=== PATIENT | female | born 2000 | race Two or more races ===

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

== ENCOUNTER 2023-12-04 10:20 | Emergency (ER) | payer SELFPAY ==
[2023-12-04 10:37] VITALS: BP 128/76; PULSE 92; RESP 16; TEMP 36.6; O2SAT 96
[2023-12-04 11:06] LABS: Add Urine Microscopic? NO; Charge for UA Resulting for Rev
[2023-12-04 11:10] LABS: Bilirubin Urine Neg (Negative); Blood Urine Neg (Negative); Glucose Urine UA Norm (Normal); Ketones Urine Negative (Negative); Leukocyte Esterase Urine Negative (Negative); Nitrate Urine Negative (Negative); Protein Urine Neg (Negative); Specific Gravity, Urine 1.015 (1.005-1.030); Urine Appearance Clear (CLEAR); Urine Color Yellow (Yellow); Urobilinogen Urine Neg (Negative); pH Urine 5 (5-7)
[2023-12-04 11:24] LABS: Basophils # 0.1 10^3/uL (0.0-0.1); Basophils % 0.9 %; Eosinophils # 0.2 10^3/uL (0.0-0.8); Eosinophils % 3.9 %; Lymphocytes # 1.1 10^3/uL (0.8-4.8); Lymphocytes % 19.9 %; Mean Corpuscular Hemoglobin 23.3 pg (27-33); Mean Corpuscular Volume 77.6 fl (85-98); Mean Platelet Volume 9.7 fL (7.4-10.4); Monocytes # 0.5 10^3/uL (0.2-0.9); Monocytes % 8.4 %; Neutrophils # 3.58 10^3/uL (1.8-7.7); Neutrophils % 66.5 %; Nucleated Red Blood Cells % 0 %; Platelet Count 291 10^3/cmm (157-399); Red Blood Count 4.77 10^6/uL (3.85-5.65); Red Cell Distribution Width 18.2 % (12.1-15.1); White Blood Count 5.38 10^3/uL (3.29-11.43)
[2023-12-04 11:40] LABS: Alanine Aminotransferase 11 U/L (0-33); Albumin Level 4.1 g/dL (3.5-5.2); Alkaline Phosphatase 92 U/L (35-105); Anion Gap 17.6 (5-19); Aspartate Amino Transferase 14 U/L (0-32); Blood Urea Nitrogen 9 mg/dL (6-20); Carbon Dioxide 21 mmol/L (22-29); Chloride 105 mmol/L (98-107); Creatinine Clr Calc Pharmacy 171.4003; Globulin 3.1 g/dL (1.3-4.6); Glomerular Filtration Rate 105.6 mL/min (90-130); Glucose 96 mg/dL (65-115); Lipase 31 U/L (13-60); Osmolality Calculated 289 mOsm/kg (285-295); Potassium 3.6 mmol/L (3.5-5.1); Sodium 140 mmol/L (136-145); Total Bilirubin 0.4 mg/dL (0.15-1.2); Total Protein 7.2 g/dL (6.6-8.7)
[2023-12-04 11:42] LABS: HCG, Serum Qual Negative (Negative)
--- NOTE | 2023-12-04 12:42 | PC.PHAR ---
PT STATES HAS ALL 4 MEDICATIONS LAST FILL 04/22/2023-USES SPARINGLY DUE TO LACK OF INSURANCE.
--- NOTE | 2023-12-04 12:57 | ED_ITS ---
HPI - Abdominal Pain 2 General: Chief Complaint: Abdominal Pain Stated Complaint: abd, lower back, groin pain Time Seen by Provider: 12/04/23 12:30 Source: patient Mode of arrival: ambulatory History of Present Illness: 23-year-old female presents emergency co mplaining of severe right-sided flank pain with pain radiating down to the groin. She has had it for the last 3 days intermittent very sharp in nature. She also had urinary frequency and urgency. No hematuria. No fever sweats or chills. PFSH ED 2 PFSH: Medical History (Updated 12/04/23 @ 15:11 by Aurelio Soria DO) COPD (chronic obstructive pulmonary disease) Positive urine drug screen Surgical History Hx of knee surgery PT REPORTS KNEE SURGERY 2016 Family History Unknown No problems noted. Mother Diabetes Clotting disorder Hypertension Grandmother Cancer Maternal lung cancer Hypertension Maternal Father No problems noted. Sister Trisomy 13 Denies family history of Chronic kidney disease (CKD) Bleeding disorder Stroke Social History Smoking and tobacco/nicotine status: never used tobacco/nicotine Second hand smoke exposure: Yes Alcohol intake: never Substance/Drug Use: current Adopted: No Highest education level completed: 10th Grade Current occupational exposures/hazards: No Female Reproductive History: Para: 0 Spontaneous abortions: No Course 2 Vital Signs: Vital signs: Vital Signs Temperature 97.9 F 12/04/23 10:37 Pulse Rate 78 12/04/23 15:31 Respiratory Rate 16 12/04/23 15:31 Blood Pressure 116/77 12/04/23 15:31 Pulse Oximetry 95 12/04/23 15:31 Oxygen Delivery Me thod Room Air 12/04/23 14:58 MDM - Abdominal Pain Medical Decision Making Labs and imaging reviewed no acute findings will discharge patient home clear liquid diet advance as tolerated use promethazine as needed. If not improving recheck discussed her also this may be a biliary colic she has associated some of the pain with particular foods although it seems little low in the abdomen for that. If she has persistent symptoms may need further evaluation. CT today did not show any acute pathology Medical Records I reviewed the patient's medical records. Lab Data I reviewed the patient's lab results. 12/04/23 11:01 12/04/23 11:01 Labs/Radiology: Radiology Impressions Abdomen/Pelvis CT 12/04/23 12:58 IMPRESSION: 1. Limited noncontrast examination without CT evidence of acute intra-abdominal or pelvic pathology. 2. Additional findings, as above. Laboratory Results WBC 5.38 10^3/uL (3.29-11.43) 12/04/23 11:01 RBC 4.77 10^6/uL (3.85-5.65) 12/04/23 11:01 Hgb 11.10 g/dL (11.27-16.99) L 12/04/23 11:01 Hct 37.0 % (36-47) 12/04/23 11:01 MCV 77.6 fl (85-98) L 12/04/23 11:01 MCH 23.3 pg (27-33) L 12/04/23 11:01 MCHC 30.0 g/dL (30-55) 12/04/23 11:01 RDW 18.2 % (12.1-15.1) H 12/04/23 11:01 Plt Count 291 10^3/cmm (157-399) 12/04/23 11:01 MPV 9.7 fL (7.4-10.4) 12/04/23 11:01 Neut % (Auto) 66.5 % 12/04/23 11:01 Lymph % (Auto) 19.9 % 12/04/23 11:01 [place] % (Auto) 8.4 % 12/04/23 11:01 Eos % (Auto) 3.9 % 12/04/23 11:01 Baso % (Auto) 0.9 % 12/04/23 11:01 Neut # (Auto) 3.58 10^3/uL (1.8-7.7) 12/04/23 11:01 Lymph # (Auto) 1.1 10^3/uL (0.8-4.8) 12/04/23 11:01 [place] # (Auto) 0.5 10^3/uL (0.2-0.9) 12/04/23 11:01 Eos # (Auto) 0.2 10^3/uL (0.0-0.8) 12/04/23 11:01 Baso # (Auto) 0.1 10^3/uL (0.0-0.1) 12/04/23 11:01 Nucleated RBC % (auto) 0 % 12/04/23 11:01 Nucleated RBCs # 0.0 /100WBC 12/04/23 11:01 Sodium 140 mmol/L (136-145) 12/04/23 11:01 Potassium 3.6 mmol/L (3.5-5.1) 12/04/23 11:01 Chloride 105 mmol/L (98-107) 12/04/23 11:01 Carbon Dioxide 21 mmol/L (22-29) L 12/04/23 11:01 Anion Gap 17.6 (5-19) 12/04/23 11:01 BUN 9 mg/dL (6-20) 12/04/23 11:01 Creatinine 0.7 mg/dL (0.5-0.9) 12/04/23 11:01 GFR Calculation 105.6 mL/min (90-130) 12/04/23 11:01 Glucose 96 mg/dL (65-115) 12/04/23 11:01 POC Glucose 91 mg/dL (70-110) 12/04/23 14:37 Calculated Osmolality 289 mOsm/kg (285-295) 12/04/23 11:01 Calcium 9.0 mg/dL (8.5-10.5) 12/04/23 11:01 Total Bilirubin 0.4 mg/dL (0.15-1.2) 12/04/23 11:01 AST 14 U/L (0-32) 12/04/23 11:01 ALT 11 U/L (0-33) 12/04/23 11:01 Alkaline Phosphatase 92 U/L (35-105) 12/04/23 11:01 Total Protein 7.2 g/dL (6.6-8.7) 12/04/23 11:01 Albumin 4.1 g/dL (3.5-5.2) 12/04/23 11:01 Globulin 3.1 g/dL (1.3-4.6) 12/04/23 11:01 Lipase 31 U/L (13-60) 12/04/23 11:01 HCG, Qual Negative (Negative) 12/04/23 11:01 Urine Color Yellow (Yellow) 12/04/23 10:31 Urine Appearance Clear (CLEAR) 12/04/23 10:31 Urine pH 5 (5-7) 12/04/23 10:31 Ur Specific [place] 1.015 (1.005-1.030) 12/04/23 10:31 Urine Protein Neg (Negative) 12/04/23 10:31 Urine Glucose (UA) Norm (Normal) 12/04/23 10:31 Urine Ketones Negative (Negative) 12/04/23 10:31 Urine Blood Neg (Negative) 12/04/23 10:31 Urine Nitrate Negative (Negative) 12/04/23 10:31 Urine Bilirubin Neg (Negative) 12/04/23 10:31 Urine Urobilinogen Neg mg/dL (Negative) 12/04/23 10:31 Ur Leukocyte Esterase Negative (Negative) 12/04/23 10:31 All radiology interpretation(s) finalized by discharge Discharge Plan Discharge Patient Disposition: Home Clinical Impression: Abdominal pain Condition: Stable Prescriptions: New promethazine 25 mg tablet 25 mg PO Q6H PRN (Reason: nausea and vomiting) Qty: 20 0RF No Action Advair Diskus 250-50 mcg/dose blister with device 1 inh INHALATION BID sertraline 100 mg tablet 100 mg PO DAILY spironolactone 25 mg tablet 25 mg PO DAILY Ventolin HFA 90 mcg/actuation HFA aerosol inhaler 1 puff INHALATION Q4H PRN (Reason: Wheezing) Discharge Orders: Discharge ED (Routine); Ordered 12/04/23 Ordered By: Aurelio Soria Referrals: Rosy Larkin FNP [Primary Care Provider] - Discharge Diet: Clear Liquid Discharge Activity: Increase activity as tolerated Patient Instructions: Abdominal Pain (ED), Opioid Safety, Pain Management Activity Restrictions/Additional Instructions: Thank you for choosing [facility] for your healthcare needs today. It is very important that you follow up as instructed or that you return to the Emergency Department should you have concerns or if your condition changes or worsens in any way. You were seen today for abdominal pain. He did not have an elevation of your white count and your liver functions were normal as well as the kidney function and electrolytes. There is no sign of bladder infection. The CT that was done was unremarkable for any acute pathology. Recommend clear liquid diet for the next 24 to 48 hours and advance as tolerated use promethazine Tylenol or ibuprofen for nausea vomiting or discomfort. Follow-up with your primary care doctor if not improving Coding Level of Care Code ED Wildlife Biostation Research Ecologist for Kate Lacy
--- NOTE | 2023-12-04 12:58 | CTR_ITS ---
PROCEDURE INFORMATION: Exam: CT Abdomen And Pelvis Without Contrast Exam date and time: 12/04/2023 1:56 PM Age: 23 years old Clinical indication: Abdominal pain; Localized; Right lower quadrant (rlq); Prior surgery; Surgery date: 6+ months; Surgery type: x 2; Additional info: Flank pain TECHNIQUE: Imaging protocol: Computed tomography of the abdomen and pelvis without contrast. Axial, coronal and sagittal reformatted images were created and reviewed. Radiation optimization: All CT scans at this facility use at least one of these dose optimization techniques: automated exposure control; mA and/or kV adjustment per patient size (includes targeted exams where dose is matched to clinical indication); or iterative reconstruction. COMPARISON: US OB >= 14 weeks fetus [facility] 12/02/2020 9:35 AM RADIATION DOSE METRICS: Total DLP (mGy-cm): 1073.1 FINDINGS: Liver: Unremarkable. Gallbladder and bile ducts: No radiodense gallstones. No biliary ductal dilatation. Pancreas: Unremarkable. Spleen: Unremarkable. Adrenal glands: Normal. No mass. Kidneys and ureters: No mass. No radiodense calculi. No hydronephrosis. Stomach and bowel: No bowel wall thickening. No obstruction. No pneumatosis. Appendix: Normal. Intraperitoneal space: Trace nonspecific free pelvic fluid, likely physiologic. No organized fluid collection. No free air. Vasculature: Unremarkable. No aneurysm. Lymph nodes: Small mesenteric lymph nodes, nonspecific in appearance. No pathologically enlarged lymph nodes. Urinary bladder: Unremarkable as visualized. Reproductive: Unremarkable. Bones/joints: No acute osseous abnormality. Soft tissues: Unremarkable. CT/CT kidney stone [id number] IMPRESSION: 1. Limited noncontrast examination without CT evidence of acute intra-abdominal or pelvic pathology. 2. Additional findings, as above.
[2023-12-04 13:00] VITALS: BP 116/79; PULSE 68; PULSE 80; O2SAT 93; O2SAT 96
[2023-12-04 14:00] VITALS: BP 154/77; PULSE 79; O2SAT 99
[2023-12-04] MEDS: sodium chloride 0.9% 1,000 ML 999 ML IV (14:35)
[2023-12-04 14:40] LABS: Glucose Point of Care 91 mg/dL (70-110)
[2023-12-04 14:58] VITALS: PULSE 79; O2SAT 93
[2023-12-04 15:31] VITALS: BP 116/77; PULSE 78; RESP 16; O2SAT 95
== END 2023-12-04 15:31 | disposition home or self-care (01) ==
PROVIDERS: Emergency Medicine; Emergency Provider Family Medicine; PCP Nurse Practitioner Family
DX: R10.31 Right lower quadrant pain (principal); J44.9 Chronic obstructive pulmonary disease, unspecified; Z77.22 Contact with and (suspected) exposure to environmental tobacco smoke (acute) (chronic)
CPT/HCPCS: 36415; 36416; 74176; 80053; 81003; 82962; 83690; 84703; 85025; 99284; J7030

== ENCOUNTER 2023-12-23 20:36 | Inpatient (IN) | payer SELFPAY ==
[2023-12-23] VITALS (8 sets, daily range): BP systolic 123–147; BP diastolic 84–113; PULSE 106–123; RESP 16–22; TEMP 36.6; O2SAT 85–100
--- NOTE | 2023-12-23 20:39 | XRR_ITS ---
PROCEDURE INFORMATION: Exam: XR Chest Exam date and time: 12/23/2023 8:54 PM Age: 23 years old Clinical indication: Shortness of breath; Additional info: SOB TECHNIQUE: Imaging protocol: Radiologic exam of the chest. Views: 1 view. COMPARISON: CT angio chest PE protcl [id number] 08/22/2019 1:21 AM FINDINGS: Lungs: Mild left lower lung field opacities suggesting mild pneumonia. Pleural spaces: Unremarkable. No pleural effusion. No pneumothorax. Heart/Mediastinum: Interval appearance of mild elevation of the right hilum with mild right paratracheal opacities and right hilar opacities with possible atelectasis of the right middle lobe. CT chest with contrast may be helpful for complete evaluation. Bones/joints: Unremarkable. XR/XR chest 1V portable [id number] IMPRESSION: 1. Mild left lower lung field opacities suggesting mild pneumonia. 2. Interval appearance of mild elevation of the right hilum with mild right paratracheal opacities and right hilar opacities with possible atelectasis of the right middle lobe. CT chest with contrast may be helpful for complete evaluation.
--- NOTE | 2023-12-23 20:52 | ECG_ITS ---
[facility] Test Date: 2024-01-02 Pat Name: Renetta Morales Department: Room: EDIP Gender: Female Weapons Officer: : 2000 Requested By: Claritza Shannon Order Number: [id number] MD: Florian Driscoll M.D. Measurements Intervals [place] Rate: 108 P: 57 [place]: 126 QRS: 71 QRSD: 90 T: 62 QT: 316 QTc: 424 Interpretive Statements SINUS TACHYCARDIA WITH OCCASIONAL VENTRICULAR PREMATURE COMPLEXES Compared to ECG 08/22/2019 11:07:30 Ventricular premature complex(es) now present Sinus rhythm no longer present Electronically Signed On 12-24-2023 8:59:29 CDT by Florian Driscoll M.D. [id number]
--- NOTE | 2023-12-23 20:54 | ED_ITS ---
HPI - SOB/Dyspnea 2 General: Chief Complaint: Shortness of Breath/Dyspnea Stated Complaint: SOB Time Seen by Provider: 12/23/23 20:41 Source: patient Mode of arrival: ambulatory Limitations: no limitations History of Present Illness: HPI Narrative: 43-year-old female states been having sh ortness of breath all day states she feels like she cannot get a breath and she states she has been using albuterol inhaler with no relief she appears extremely anxious states she feels very anxious she is tachycardic tachypneic pulse ox here is 95% she denies any pain denies any cough or fever Associated symptoms: Deny abdominal pain, chest pain, fever(s), nausea or vomiting Review of Systems 2 Const: Denies: fever(s), chills, body aches or change in appetite ENMT: Denies: throat pain or dental pain Card: Denies: chest pain Resp: Reports: dyspnea GI: Denies: abdominal pain, nausea, vomiting or diarrhea Musc: Denies: neck pain or back pain Skin/Breast: Denies: rash Neuro: Denies: headache(s) Psych: Reports: anxiety PFSH ED 2 PFSH: Medical History COPD (chronic obstructive pulmonary disease) Positive urine drug screen Surgical History Hx of knee surgery PT REPORTS KNEE SURGERY 2017 Family History Unknown No problems noted. Mother Diabetes Clotting disorder Hypertension Grandmother Cancer Maternal lung cancer Hypertension Maternal Father No problems noted. Sister Trisomy 13 Denies family history of Chronic kidney disease (CKD) Bleeding disorder Stroke Social History Smoking and tobacco/nicotine status: never used tobacco/nicotine Second hand smoke exposure: Yes Alcohol intake: never Substance/Drug Use: current Adopted: No Highest education level completed: 10th Grade Current occupational exposures/hazards: No Female Reproductive History: Para: 0 Spontaneous abortions: No Physical Exam 2 Const: COMMON NORMALS: patient oriented x3 GENERAL APPEARANCE: anxious HENMT: COMMON NORMALS: normocephalic and atraumatic HEAD & SCALP: n ormocephalic and atraumatic Eye: COMMON NORMALS: conjunctivae normal CONJUNCTIVA: Yes conjunctivae normal Neck/C-Spine: COMMON NORMALS: full ROM and supple Chest: COMMONS NORMALS: normal inspection of the chest Resp: COMMON NORMALS: No retractions and No use of accessory muscles EFFORT & INSPECTION: Yes tachypneic and Yes respiratory distress AUSCULTATION: w heezes Cardio: COMMON NORMALS: regular rhythm and No murmurs present (Cardio) R ATE: tachycardic RHYTHM: regular rhythm Extremity: COMMON NORMALS: normal to inspection and full ROM Neuro: COMMON NORMALS: patient oriented x3, moves all extremities and no focal motor deficits Psych: COMMON NORMALS: mental status grossly normal, Normal thought process present and cooperative THOUGHT PROCESS: Normal thought process present Skin: COMMON NORMALS: no rashes or lesions noted and no wounds GENERAL SKIN EXAM: no rashes or lesions noted Course 2 Vital Signs: Vital signs: Vital Signs Temperature 97.9 F 12/23/23 20:43 Pulse Rate 115 H 12/23/23 22:07 Respiratory Rate 16 12/23/23 22:07 Blood Pressure 128/100 12/23/23 22:00 Pulse Oximetry 99 12/23/23 22:07 Oxygen Delivery Me thod Room Air 12/23/23 22:07 MDM - SOB/Dyspnea Medical Decision Making Patient presents here with shortness of breath x-ray does show pneumonia patient did improve with breathing treatments did have her ambulate with RT to monitor oxygen with exertion she dropped to 84% just walking down the burch. States she has been feeling severely short of breath when she walks will admit for IV antibiotics and continue breathing treatments Medical Records I reviewed the patient's medical records. Lab Data I reviewed the patient's lab results. 12/23/23 21:05 12/23/23 21:05 Labs/Radiology: Radiology Impressions Chest X-Ray 12/23/23 20:39 IMPRESSION: 1. Mild left lower lung field opacities suggesting mild pneumonia. 2. Interval appearance of mild elevation of the right hilum with mild right paratracheal opacities and right hilar opacities with possible atelectasis of the right middle lobe. CT chest with contrast may be helpful for complete evaluation. Laboratory Results WBC 3.64 10^3/uL (3.29-11.43) 12/23/23 21:05 RBC 4.98 10^6/uL (3.85-5.65) 12/23/23 21:05 Hgb 11.60 g/dL (11.27-16.99) 12/23/23 21:05 Hct 38.9 % (36-47) 12/23/23 21:05 MCV 78.1 fl (85-98) L 12/23/23 21:05 MCH 23.3 pg (27-33) L 12/23/23 21:05 MCHC 29.8 g/dL (30-55) L 12/23/23 21:05 RDW 18.3 % (12.1-15.1) H 12/23/23 21:05 Plt Count 243 10^3/cmm (157-399) 12/23/23 21:05 MPV 9.4 fL (7.4-10.4) 12/23/23 21:05 Neut % (Auto) 66.2 % 12/23/23 21:05 Lymph % (Auto) 14.8 % 12/23/23 21:05 Rush % (Auto) 11.5 % 12/23/23 21:05 Eos % (Auto) 5.8 % 12/23/23 21:05 Baso % (Auto) 1.4 % 12/23/23 21:05 Neut # (Auto) 2.41 10^3/uL (1.8-7.7) 12/23/23 21:05 Lymph # (Auto) 0.5 10^3/uL (0.8-4.8) L 12/23/23 21:05 Rush # (Auto) 0.4 10^3/uL (0.2-0.9) 12/23/23 21:05 Eos # (Auto) 0.2 10^3/uL (0.0-0.8) 12/23/23 21:05 Baso # (Auto) 0.1 10^3/uL (0.0-0.1) 12/23/23 21:05 Nucleated RBC % (auto) 0 % 12/23/23 21:05 Nucleated RBCs # 0.0 /100WBC 12/23/23 21:05 D-Dimer 0.36 ug/mLFEU (0-0.59) 12/23/23 21:05 Sodium 139 mmol/L (136-145) 12/23/23 21:05 Potassium 3.7 mmol/L (3.5-5.1) 12/23/23 21:05 Chloride 105 mmol/L (98-107) 12/23/23 21:05 Carbon Dioxide 22 mmol/L (22-29) 12/23/23 21:05 Anion Gap 15.7 (5-19) 12/23/23 21:05 BUN 15 mg/dL (6-20) 12/23/23 21:05 Creatinine 0.8 mg/dL (0.5-0.9) 12/23/23 21:05 GFR Calculation 90.5 mL/min (90-130) 12/23/23 21:05 Glucose 87 mg/dL (65-115) 12/23/23 21:05 Calculated Osmolality 288 mOsm/kg (285-295) 12/23/23 21:05 Calcium 9.2 mg/dL (8.5-10.5) 12/23/23 21:05 Total Bilirubin 0.2 mg/dL (0.15-1.2) 12/23/23 21:05 AST 15 U/L (0-32) 12/23/23 21:05 ALT 13 U/L (0-33) 12/23/23 21:05 Alkaline Phosphatase 100 U/L (35-105) 12/23/23 21:05 NT-Pro-B Natriuret Pep < 36 pg/mL (0-125) 12/23/23 21:05 Total Protein 7.9 g/dL (6.6-8.7) 12/23/23 21:05 Albumin 4.3 g/dL (3.5-5.2) 12/23/23 21:05 Globulin 3.6 g/dL (1.3-4.6) 12/23/23 21:05 HCG, Qual Negative (Negative) 12/23/23 21:05 All radiology interpretation(s) finalized by discharge EKG Data EKG 1: I personally reviewed and interpreted this EKG as follows: EKG Interpretation Date: 12/23/23 EKG interpretation time: 21:47 Interpretation: sinus tach hr [address] or t wave abnormalities qrs 90 qtc 379 Discharge Plan Discharge Patient Disposition: Admitted As Inpatient Clinical Impression: Asthma with exacerbation, Pneumonia, Acute respiratory failure with hypoxia Condition: Stable Prescriptions: No Action Advair Diskus 250-50 mcg/dose blister with device 1 inh INHALATION BID sertraline 100 mg tablet 100 mg PO DAILY spironolactone 25 mg tablet 25 mg PO DAILY Ventolin HFA 90 mcg/actuation HFA aerosol inhaler 1 puff INHALATION Q4H PRN (Reason: Wheezing) promethazine 25 mg tablet 25 mg PO Q6H PRN (Reason: nausea and vomiting) Qty: 20 0RF Referrals: Larkin,Rosy, RETAIL TIRE SALES MANAGER [Primary Care Provider] - Coding Level of Care Code ED City Distribution Clerk for Kate Lacy
--- NOTE | 2023-12-23 21:01 | PC.NURSE ---
Pt on bedside child monitor
[2023-12-23 21:17] LABS: Basophils # 0.1 10^3/uL (0.0-0.1); Basophils % 1.4 %; Eosinophils # 0.2 10^3/uL (0.0-0.8); Eosinophils % 5.8 %; Hematocrit 38.9 % (36-47); Lymphocytes # 0.5 10^3/uL (0.8-4.8); Lymphocytes % 14.8 %; Mean Corpuscular HGB Conc 29.8 g/dL (30-55); Mean Corpuscular Hemoglobin 23.3 pg (27-33); Mean Corpuscular Volume 78.1 fl (85-98); Mean Platelet Volume 9.4 fL (7.4-10.4); Monocytes # 0.4 10^3/uL (0.2-0.9); Monocytes % 11.5 %; Neutrophils # 2.41 10^3/uL (1.8-7.7); Neutrophils % 66.2 %; Nucleated Red Blood Cells % 0 %; Platelet Count 243 10^3/cmm (157-399); Red Blood Count 4.98 10^6/uL (3.85-5.65); Red Cell Distribution Width 18.3 % (12.1-15.1); White Blood Count 3.64 10^3/uL (3.29-11.43)
[2023-12-23] MEDS: LORazepam 2 mg/mL INJ 1 mL 1 MG IVP (21:19)
[2023-12-23] MEDS: methylPREDNISolone sod succ 125 mg/2 mL INJ IV (21:21)
[2023-12-23] MEDS: sodium chloride 0.9% 1,000 ML 999 ML IV (21:22)
[2023-12-23 21:28] LABS: HCG, Serum Qual Negative (Negative)
[2023-12-23 21:45] LABS: Alanine Aminotransferase 13 U/L (0-33); Albumin Level 4.3 g/dL (3.5-5.2); Alkaline Phosphatase 100 U/L (35-105); Anion Gap 15.7 (5-19); Aspartate Amino Transferase 15 U/L (0-32); Blood Urea Nitrogen 15 mg/dL (6-20); Calcium 9.2 mg/dL (8.5-10.5); Carbon Dioxide 22 mmol/L (22-29); Chloride 105 mmol/L (98-107); D Dimer 0.36 ug/mLFEU (0-0.59); Globulin 3.6 g/dL (1.3-4.6); Glomerular Filtration Rate 90.5 mL/min (90-130); Glucose 87 mg/dL (65-115); NT Pro B Type Natriuretic Pept < 36 pg/mL (0-125); Osmolality Calculated 288 mOsm/kg (285-295); Potassium 3.7 mmol/L (3.5-5.1); Sodium 139 mmol/L (136-145); Total Bilirubin 0.2 mg/dL (0.15-1.2); Total Protein 7.9 g/dL (6.6-8.7)
[2023-12-23] MEDS: ipratropium-albuterol 3 mL Neb INHALATION (21:59)
--- NOTE | 2023-12-23 22:32 | P.HP_ITS ---
Providers/Chief Complaint 2 Primary Care Provider: CADY Judge Chief Complaint: SOB History of Present Illness Renetta Morales is a 23 year old female with history of asthma, recently lost her insurance because she turned 23, only uses albuterol, has been experiencing shortness of breath for last few days which has gotten worse in the last 48 hours, she has noticed low-grade fever, she has been noticing wheezing, in the ER she was diagnosed with pneumonia, she was desaturating on exertion that necessitated her admission. I have requested blood gas, admit to ICU, start IV steroids, given antibiotics. Patient is stating that she is seeing a nurse practitioner who always prescribes her albuterol, she has not seen a coal crusher operator, she is stating that she is using her mom's inhalers. Stating that she is waking up every night around 4 AM because of cold induced worsening of asthma, forcing in the morning she grabs her albuterol and takes inhaler to make sure she does not get short of breath, she has been using albuterol 4-5 times a day I requested COVID PCR, strep throat and drug screen Review of Systems 2 Const: Reports: fever(s) and chills Eyes: Denies: change in vision ENMT: Denies: throat pain Card: Denies: chest pain Resp: Reports: dyspnea and wheezing GI: Denies: abdominal pain : Denies: flank pain Musc: Denies: neck pain Medications/Allergies Home Medications Medication Instructions Recorded Confirmed Last Taken Type albuterol sulfate 90 mcg/actuation 1 puff inhalation Q4H PRN Wheezing 12/04/23 12/04/23 Unknown History aerosol inhaler (Ventolin HFA) fluticasone 250 mcg-salmeterol 50 1 inh inhalation BID 12/04/23 12/04/23 Unknown History mcg/dose blistr powdr for inhalation (Advair Diskus) promethazine 25 mg tablet 25 mg PO Q6H PRN nausea and 12/04/23 Unknown Rx vomiting #20 tabs sertraline 100 mg tablet 100 mg PO DAILY 12/04/23 12/04/23 Unknown History spironolactone 25 mg tablet 25 mg PO DAILY 12/04/23 12/04/23 Unknown History Allergies Allergy/AdvReac Type Severity Reaction Status Date / Time No Known Allergies Allergy Verified 12/23/23 20:49 PFSH Acute 2 PFSH: Medical History COPD (chronic obstructive pulmonary disease) Positive urine drug screen Surgical History Hx of knee surgery PT REPORTS KNEE SURGERY 2017 Family History Unknown No problems noted. Mother Diabetes Clotting disorder Hypertension Grandmother Cancer Maternal lung cancer Hypertension Maternal Father No problems noted. Sister Trisomy 13 Denies family history of Chronic kidney disease (CKD) Bleeding disorder Stroke Social History Smoking and tobacco/nicotine status: never used tobacco/nicotine Second hand smoke exposure: Yes Alcohol intake: never Substance/Drug Use: current Adopted: No Highest education level completed: 10th Grade Current occupational exposures/hazards: No Female Reproductive History: Para: 0 Spontaneous abortions: No Vitals/I&O/Wt Last Vital Signs Temp 97.9 F 12/23/23 20:43 Pulse 115 H 12/23/23 22:07 Resp 16 12/23/23 22:07 BP 128/100 12/23/23 22:00 Pulse Ox 85 L 12/23/23 22:20 O2 Del Method Room Air 12/23/23 22:07 O2 Flow Rate 2 12/23/23 22:20 Weight last 48 hrs Weight 117.934 kg Physical Exam 2 Narrative: Morbid obese female GCS 15 Nonfocal neuroexam Pleasant cooperative Active wheezing Currently on room air Tachycardic Anxious appearing I examined her posterior pharyngeal wall I did not see any purulent tonsillitis Data 12/23/23 21:05 12/23/23 21:05 A&P Assessment and plan (1) Asthma with exacerbation: Qualifiers: Asthma persistence: unspecified Asthma severity: unspecified severity Qualified Code(s): J45.901 - Unspecified asthma with (acute) exacerbation (2) Hypoxia: (3) Pneumonia: (4) Acute respiratory failure with hypoxia: Plan Acute asthma exacerbation secondary to community-acquired pneumonia She needs stepup approach for treatment of asthma Albuterol at this point will not be enough to treat her underlying disease she is using albuterol 5 times a day and waking up almost every night around 4 AM because of exacerbation of asthma at nighttime I do not see significant eosinophils Atelectasis with mild elevation of right hilum secondary to atelectasis Started on IV steroids Continue levo albuterol along ipratropium Will use incentive spirometer for atelectasis Check D-dimer Requested drug screen I will continue ceftriaxone and azithromycin for pneumonia Patient desaturated on exertion down to 84% on ambulation requiring admission in the hospital Patient is tachycardic most likely from the taking multiple doses of albuterol Monitor closely for now Continue IV fluids Rule out Full code Regular diet DVT prophylaxis: SCDs I requested drug screen, COVID PCR, respiratory panel, strep throat, admit to ICU for active wheezing Requested ABG Patient needs help with insurance as well, Step up approach asthma exacerbations and frequent awakening at nighttime Patient will need at least medium dose inhaled steroids along with long-acting beta agonist She will also need pulmonary referral I will also add montelukast Attestations 2 Medical Necessity Statement*: Young female with significant wheezing secondary to asthma exacerbation, needing ICU monitoring anticipating more than 2 midnights Diagnoses Asthma with exacerbation J45.901 Asthma persistence: unspecified Asthma severity: unspecified severity Hypoxia R09.02 Pneumonia J18.9 Acute respiratory failure with hypoxia J96.01
[2023-12-23] MEDS: water for injection-sterile 10 ML (22:54)
[2023-12-23] MEDS: cefTRIAXone 1,000 mg SDV 1000 MG IVP (22:55)
[2023-12-23] MEDS: azithromycin 500 MG in sodium chloride 0.9% 250 ML 250 MG IV (23:09)
[2023-12-23 23:25] LABS: Procalcitonin 0.08 ng/mL (0-0.5)
[2023-12-23 23:28] LABS: ABG PCO2 27.5 mmHg (35-45); ABG PH Result 7.45 (7.35-7.45); Base Excess ABG -3.7 mmol/L (-2.0-2.0); Blood Gas Allen Test Pos; Blood Gas Operator Identificat CL; Blood Gas Sample Site Radial, right; Blood Gas Sample Type Arterial; HCO3 ABG 19.2 mmol/L (22-26); PO2 ABG 62.3 mmHg (80.0-100.0)
[2023-12-23 23:35] LABS: Amphetamines Screen Urine Negative (Negative); Barbiturates Screen Urine Negative (Negative); Benzodiazepines Screen Urine Positive (Negative); Cocaine Screen Urine Positive (Negative); Opiate Screen Urine Negative (Negative); PCP Screen Urine Negative (Negative); Rapid Strep A Test Negative (Negative); THC Screen Urine Positive (Negative)
[2023-12-24] VITALS (131 sets, daily range): BP systolic 103–147; BP diastolic 68–113; PULSE 77–133; RESP 11–31; TEMP 36.4–36.5; O2SAT 88–100; BMI 41.5
[2023-12-24 00:06] LABS: Estmated Average Glucose 108; Hemoglobin A1C 5.4 % (4.0-6.0)
[2023-12-24 01:42] LABS: Adenovirus Not Detected (NOT DETECT); Chlamydia Pneumoniae Not Detected (NOT DETECT); Coronavirus 229E,HKU1,NL63,OC4 Not Detected (NOT DETECT); Human Metapneumovirus Not Detected (NOT DETECT); Human Rhinovirus/Enterovirus Not Detected (NOT DETECT); Influenza A Not Detected (NOT DETECT); Influenza A H1 Not Detected (NOT DETECT); Influenza A H1-2009 Not Detected (NOT DETECT); Influenza A H3 Not Detected (NOT DETECT); Influenza B Not Detected (NOT DETECT); Mycoplasma Pneumoniae Not Detected (NOT DETECT); Parainfluenza Virus Type 1 Not Detected (NOT DETECT); Parainfluenza Virus Type 2 Not Detected (NOT DETECT); Parainfluenza Virus Type 3 Not Detected (NOT DETECT); Parainfluenza Virus Type 4 Not Detected (NOT DETECT); Respiratory Syncytial Virus A Not Detected (NOT DETECT); Respiratory Syncytial Virus B Not Detected (NOT DETECT)
[2023-12-24] MEDS: montelukast sodium 10 mg Tablet PO ×2 (02:11→17:09)
[2023-12-24] MEDS: sodium chloride 0.9% 1,000 ML 75 ML IV (02:12)
[2023-12-24 02:25] LABS: Thyroid Stimulating Hormone 2.06 uIU/mL (0.27-4.20)
[2023-12-24 02:30] LABS: SARS-COV-2 Detected (NOT DETECT)
[2023-12-24 03:47] LABS: Basophils % 0.2 %; Eosinophils % 0.2 %; Hematocrit 36.3 % (36-47); Lymphocytes # 0.3 10^3/uL (0.8-4.8); Lymphocytes % 6.5 %; Mean Corpuscular HGB Conc 30.3 g/dL (30-55); Mean Corpuscular Hemoglobin 23.5 pg (27-33); Mean Corpuscular Volume 77.4 fl (85-98); Mean Platelet Volume 9.5 fL (7.4-10.4); Monocytes # 0.1 10^3/uL (0.2-0.9); Monocytes % 1.2 %; Neutrophils # 3.79 10^3/uL (1.8-7.7); Neutrophils % 91.7 %; Nucleated Red Blood Cells % 0 %; Platelet Count 266 10^3/cmm (157-399); Red Blood Count 4.69 10^6/uL (3.85-5.65); Red Cell Distribution Width 18.2 % (12.1-15.1); White Blood Count 4.14 10^3/uL (3.29-11.43)
[2023-12-24 04:08] LABS: Anion Gap 16.8 (5-19); Blood Urea Nitrogen 13 mg/dL (6-20); C Reactive Protein 23.8 mg/L (0.0-4.9); Calcium 9.2 mg/dL (8.5-10.5); Carbon Dioxide 20 mmol/L (22-29); Chloride 107 mmol/L (98-107); Creatinine Clr Calc Pharmacy 170.8544; Glomerular Filtration Rate 105.6 mL/min (90-130); Glucose 138 mg/dL (65-115); Magnesium 1.8 mg/dL (1.7-2.3); Osmolality Calculated 292 mOsm/kg (285-295); Phosphorus 1.6 mg/dL (2.5-4.5); Potassium 3.8 mmol/L (3.5-5.1); Sodium 140 mmol/L (136-145)
[2023-12-24] MEDS: ipratropium 0.5 mg/2.5 mL Neb INHALATION ×4 (04:20→21:00)
[2023-12-24] MEDS: levalbuterol 1.25 mg/3 mL Neb INHALATION ×4 (04:20→21:00)
[2023-12-24] MEDS: methylPREDNISolone sod succ 40 mg/mL INJ IVP ×3 (04:44→21:09)
--- NOTE | 2023-12-24 08:59 | ECG_ITS ---
[facility] Test Date: 2023-12-24 Pat Name: Renetta Morales Department: Room: ICU02 Gender: Female Insurance Risk Analyst: : 2000 Requested By: Viraj Wong Order Number: [id number] MD: Nura Evans M.D. Measurements Intervals [place] Rate: 103 P: 53 ND: 138 QRS: 66 QRSD: 90 T: 58 QT: 332 QTc: 435 Interpretive Statements SINUS TACHYCARDIA ABNORMAL RHYTHM ECG Compared to ECG 08/22/2019 11:07:30 Sinus rhythm no longer present Electronically Signed On 12-24-2023 23:29:32 CDT by Nura Evans M.D. [email or web address] [email or web address] Icemccullough-hyde memorial [id number]
[2023-12-24] MEDS: lisinopril 10 mg Tablet PO (09:48)
[2023-12-24] MEDS: spironolactone 25 mg Tablet PO (09:48)
[2023-12-24] MEDS: azithromycin 250 mg Tablet 500 MG PO (09:48)
[2023-12-24] MEDS: ALPRAZolam 0.5 mg Tablet PO ×3 (09:48→22:50)
[2023-12-24] MEDS: cefTRIAXone 1,000 MG in sodium chloride 0.9% (plus) 50 ML 100 MG IV (09:49)
[2023-12-24] MEDS: remdesivir 200 MG in sodium chloride 0.9% (100 ml) 60 ML 100 MG IV (10:35)
[2023-12-24] MEDS: enoxaparin 40 mg/0.4 mL Syringe SUBCUT (12:16)
--- NOTE | 2023-12-24 12:38 | P.PN_ITS ---
Subjective 2 Subjective: Patient was seen this morning, we discussed her COVID-19 positivity, she tells me that she has had family members to visit her from [place] and from [place], does report a cough, her wheezing has improved, she denies being , Vitals/I&O/Wt Last Vital Signs Temp 97.6 F 12/24/23 01:02 Pulse 109 H 12/24/23 12:30 Resp 20 H 12/24/23 12:30 BP 120/69 12/24/23 12:30 Pulse Ox 90 12/24/23 12:25 O2 Del Method Nasal Cannula 12/24/23 11:29 O2 Flow Rate 1.5 12/24/23 11:29 FiO2 21 12/24/23 02:47 12/23/23 12/24/23 12/24/23 22:59 06:59 14:59 Intake Total 1560 / 1560 982.5 / 982.5 Output Total 500 / 500 1100 / 1100 Balance 1060 / 1060 -117.5 / -117.5 Weight last 48 hrs Weight 120.429 kg Weight 120.429 kg Weight 117.934 kg Physical Exam 2 Const: COMMON NORMALS: no acute distress and patient oriented x3 HENMT: COMMON NORMALS: normocephalic HEAD & SCALP: normocephalic Resp: COMMON NORMALS: normal respiratory effort, No retractions and No use of accessory muscles AUSCULTATION: wheezes Cardio: COMMON NORMALS: regular rate, regular rhythm, S1 normal heart sound present and S2 normal heart sound present RATE: regular rate RHYTHM: r egular rhythm HEART SOUNDS: S1 normal heart sound present and S2 normal heart sound present GI: COMMON NORMALS: Normal to inspection, nondistended, normoactive bowel sounds present and non-tender Extremity: COMMON NORMALS: no pedal edema Neuro: COMMON NORMALS: patient oriented x3 Psych: COMMON NORMALS: mental status grossly normal Data 12/24/23 03:06 12/24/23 03:06 Micro: Microbiology 12/23/23 10:40 Blood Culture - Preliminary Blood SPECIMEN COLLECTED 12/23/23 10:51 Blood Culture - Preliminary Blood SPECIMEN COLLECTED A&P Assessment and plan (1) Asthma with exacerbation: Qualifiers: Asthma persistence: unspecified Asthma severity: unspecified severity Qualified Code(s): J45.901 - Unspecified asthma with (acute) exacerbation (2) Hypoxia: (3) Pneumonia: (4) Acute respiratory failure with hypoxia: (5) Pneumonia due to COVID-19 virus: Plan Acute asthma exacerbation secondary to COVID-19 pneumonia, and bacterial pneumonia Plan ? He is more comfortable, will moved to [facility] ? Continue Solu-Medrol ? Continue Rocephin, ? Acute azithromycin -Continue albuterol ? Start remdesivir -Monitor respiratory status closely Patient is tachycardic most likely from the taking multiple doses of albuterol Monitor closely for now Continue IV fluids Urine toxicology screen positive for cocaine Full code Regular diet DVT prophylaxis: Lovenox Attestations 2 Medical Necessity Statement*: Patient requires hospitalization, inpatient, greater than 2 midnights, for asthma exacerbation secondary COVID-19 pneumonia, bacterial pneumonia Diagnoses Asthma with exacerbation J45.901 Asthma persistence: unspecified Asthma severity: unspecified severity Hypoxia R09.02 Pneumonia J18.9 Acute respiratory failure with hypoxia J96.01 Pneumonia due to COVID-19 virus U07.1; J12.82
[2023-12-24] MEDS: acetaminophen 500 mg Tablet PO (14:32)
[2023-12-25] VITALS (11 sets, daily range): BP systolic 95–129; BP diastolic 59–91; PULSE 68–105; RESP 17–22; TEMP 36.4–36.8; O2SAT 89–98
[2023-12-25 05:16] LABS: Basophils % 0.1 %; Hematocrit 39.3 % (36-47); Lymphocytes # 0.8 10^3/uL (0.8-4.8); Lymphocytes % 5.8 %; Mean Corpuscular HGB Conc 29.5 g/dL (30-55); Mean Corpuscular Hemoglobin 23.1 pg (27-33); Mean Corpuscular Volume 78.3 fl (85-98); Mean Platelet Volume 9.6 fL (7.4-10.4); Monocytes # 0.4 10^3/uL (0.2-0.9); Monocytes % 2.9 %; Neutrophils # 12.37 10^3/uL (1.8-7.7); Neutrophils % 90.9 %; Nucleated Red Blood Cells % 0 %; Platelet Count 353 10^3/cmm (157-399); Red Blood Count 5.02 10^6/uL (3.85-5.65); Red Cell Distribution Width 18.6 % (12.1-15.1); White Blood Count 13.61 10^3/uL (3.29-11.43)
[2023-12-25] MEDS: methylPREDNISolone sod succ 40 mg/mL INJ IVP ×2 (05:33→15:08)
[2023-12-25 05:46] LABS: Anion Gap 17.3 (5-19); Blood Urea Nitrogen 13 mg/dL (6-20); Calcium 9.3 mg/dL (8.5-10.5); Carbon Dioxide 22 mmol/L (22-29); Chloride 105 mmol/L (98-107); Creatinine Clr Calc Pharmacy 149.4976; Glomerular Filtration Rate 90.5 mL/min (90-130); Glucose 133 mg/dL (65-115); Osmolality Calculated 292 mOsm/kg (285-295); Potassium 4.3 mmol/L (3.5-5.1); Sodium 140 mmol/L (136-145)
[2023-12-25] MEDS: levalbuterol 1.25 mg/3 mL Neb INHALATION ×3 (07:43→20:01)
[2023-12-25] MEDS: ipratropium 0.5 mg/2.5 mL Neb INHALATION ×2 (07:43→20:01)
[2023-12-25] MEDS: sertraline 100 mg Tablet PO (09:08)
[2023-12-25] MEDS: ALPRAZolam 0.5 mg Tablet PO ×2 (09:08→19:40)
[2023-12-25] MEDS: azithromycin 250 mg Tablet PO (09:09)
[2023-12-25] MEDS: remdesivir 100 MG in sodium chloride 0.9% (100 ml) 80 ML IV (09:09)
[2023-12-25] MEDS: cefTRIAXone 1,000 MG in sodium chloride 0.9% (plus) 50 ML 100 MG IV (09:09)
[2023-12-25] MEDS: enoxaparin 40 mg/0.4 mL Syringe SUBCUT (15:08)
--- NOTE | 2023-12-25 17:07 | P.PN_ITS ---
Subjective 2 Subjective: patient was seen this morning, reports a cough, no fever, no chills, Vitals/I&O/Wt Last Vital Signs Temp 97.9 F 12/25/23 16:17 Pulse 86 12/25/23 17:03 Resp 18 12/25/23 17:03 BP 129/91 12/25/23 16:17 Pulse Ox 95 12/25/23 17:03 O2 Del Method Room Air 12/25/23 17:03 O2 Flow Rate 1 12/24/23 17:05 FiO2 21 12/24/23 02:47 12/25/23 12/25/23 12/25/23 06:59 14:59 22:59 Intake Total 1010 / 1010 100 / 1110 Balance 1010 / 1010 100 / 1110 Weight last 48 hrs Weight 120.429 kg Weight 120.429 kg Weight 120.429 kg Weight 117.934 kg Physical Exam 2 Const: COMMON NORMALS: no acute distress and patient oriented x3 Resp: COMMON NORMALS: normal respiratory effort, No retractions and No use of accessory muscles AUSCULTATION: wheezes Cardio: COMMON NORMALS: regular rate, regular rhythm, S1 normal heart sound present and S2 normal heart sound present RATE: regular rate RHYTHM: r egular rhythm HEART SOUNDS: S1 normal heart sound present and S2 normal heart sound present GI: COMMON NORMALS: Normal to inspection, nondistended, normoactive bowel sounds present and non-tender Extremity: COMMON NORMALS: no pedal edema Neuro: COMMON NORMALS: patient oriented x3 Psych: COMMON NORMALS: mental status grossly normal Data 12/25/23 04:36 12/25/23 04:36 Micro: Microbiology 12/23/23 23:14 Group A Streptococcus Rapid Screen - Preliminary Throat 12/23/23 10:40 Blood Culture - Preliminary Blood NEGATIVE TO DATE 12/23/23 10:51 Blood Culture - Preliminary Blood NEGATIVE TO DATE A&P Assessment and plan (1) Asthma with exacerbation: Qualifiers: Asthma persistence: unspecified Asthma severity: unspecified severity Qualified Code(s): J45.901 - Unspecified asthma with (acute) exacerbation (2) Hypoxia: (3) Pneumonia: (4) Acute respiratory failure with hypoxia: (5) Pneumonia due to COVID-19 virus: Plan Acute asthma exacerbation secondary to COVID-19 pneumonia, and bacterial pneumonia Plan ? He is more comfortable, will moved to [facility] ? Continue Solu-Medrol ? Continue Rocephin, ? Acute azithromycin -Continue albuterol ? Start remdesivir -Monitor respiratory status closely Patient is tachycardic most likely from the taking multiple doses of albuterol Monitor closely for now Continue IV fluids Urine toxicology screen positive for cocaine Full code Regular diet DVT prophylaxis: Lovenox curently on 2L Attestations 2 Medical Necessity Statement*: patient requires hospitalization for pna, covid pna, asthma Diagnoses Asthma with exacerbation J45.901 Asthma persistence: unspecified Asthma severity: unspecified severity Hypoxia R09.02 Pneumonia J18.9 Acute respiratory failure with hypoxia J96.01 Pneumonia due to COVID-19 virus U07.1; J12.82
[2023-12-25] MEDS: montelukast sodium 10 mg Tablet PO (17:13)
--- NOTE | 2023-12-25 21:20 | PC.NURSE ---
Pt was ambulating in the burch with her and child, only the patient was wearing a mask. The pt had been staying with her while she was admitted on the floor. Charge nurse -Ira Stephens RN educated them on not ambulating in the burch when she is on isolation due to infection control concerns. Pt became upset saying that she had been told by multiple that it was ok to be outside of the room. Creative Services Director came to speak with the patient and again advised her of the policies and pt said she would like to leave AMA. Pt is A&OX4. explained the risks of leaving against medical advise. AMA paperwork signed and Creative Services Director walked them out. Physician notified.
== END 2023-12-25 21:26 | disposition left against medical advice (07) | DRG 177 ==
LOC: ER 22:16 → ER IP 22:43 → ICU 12-24 01:02 → MEDSURG 12-24 18:52
PROVIDERS: Admitting Provider Internal Medicine; Emergency Provider Emergency Medicine; PCP Nurse Practitioner Family; Visit Provider Family Medicine
DX: U07.1 COVID-19 (principal); J12.82 Pneumonia due to coronavirus disease 2019; J15.9 Unspecified bacterial pneumonia; J96.01 Acute respiratory failure with hypoxia; J45.901 Unspecified asthma with (acute) exacerbation; J44.0 Chronic obstructive pulmonary disease with (acute) lower respiratory infection; R00.0 Tachycardia, unspecified; R82.5 Elevated urine levels of drugs, medicaments and biological substances; F41.9 Anxiety disorder, unspecified
CPT/HCPCS: 36415; 36600; 71045; 80048; 80053; 80306; 82803; 83036; 83735; 83880; 84100; 84145; 84443; 84703; 85025; 85378; 86140; 87040; 87081; 87486; 87581; 87633; 87880; 93005; 94640; 94664; 96365; 96372; 96374; 96375; 96376; 99285; J0248; J0456; J0696; J1650; J2060; J2919; J7030; J7050; J7614; J7644; Q0144

== ENCOUNTER 2024-12-17 00:26 | Emergency (ER) | payer BC, MEDICAID, SELFPAY ==
[2024-12-17 00:31] VITALS: BP 155/84; PULSE 85; RESP 16; TEMP 36.4; O2SAT 95; BMI 38.8
--- OUTSIDE RECORDS SUMMARY | 2024-12-17 00:37 | XMS_ITS | Clinical Summary ---
Author Organization [facility] Address [address] [place] [address] Care Team Providers Care Surgical Aides Teacher Name Role Phone Trae, Rosy CADY Primary Care Provider [phone] Allergies No known active allergies Medications ipratropium-albu teroL (DUONEB) 0.5 mg-3 mg(2.5 mg base)/3 mL Solution for Nebulization Take 3 mL by inhalation every 6 hours as needed for Shortness of Breath. Active albuterol sulfate 90 mcg/Actuation inhaler Take 2 Puffs by inhalation every 6 hours as needed for Wheezing or Shortness of Breath. 8.5 Gram 01/23/20 22 Active albuterol (PROVENTIL,VICKY LIANE) 2.5 mg /3 mL (0.083 %) Solution for Nebulization Take 3 mL (2.5 mg) by inhalation every 4 hours as needed for Shortness of Breath. 60 Each 01/23/20 22 Active SUMAtriptan (IMITREX) 100 mg tablet Take 1 Tablet (100 mg) by mouth see administration instructions. may repeat in 2 hours; max dose 200mg in 24 hours 10 Tablet 03/04/20 22 Active albuterol sulfate HFA 90 mcg/actuation aerosol inhaler Take 4 Puffs by inhalation every 4 hours as needed for Shortness of Breath or Wheezing. 8.5 Gram 07/17/19 23 Active Active Problems Problem Noted Date Diagnosed Date Sinus arrhythmia 08/15/2021 Mild intermittent asthma with acute exacerbation 08/13/2021 H/O scarlet fever 08/13/2021 Moderate persistent asthma with exacerbation Acute respiratory failure with hypoxia 2 C. difficile diarrhea 08/26/2019 Morbid obesity with body mass index of 40.0-49.9 08/22/2019 S/P section 08/22/2019 Respiratory distress following surgery 0 Anemia affecting in third trimester fever 08/22/2019 Hypoxia 08/22/2019 Hypertension in , p re-eclampsia, severe, delivered/ 08/22/2019 Gestational diabetes mellitus, class A1 08/22/19 20 Pneumonia due to infectious organism 08/22/2019 Reactive airway disease 11/23/2010 Comedone 02/08/2010 Severe pre-eclampsia, antepartum Encounters Date Type Department Care Team Description 12/15/2024 External Device Data STL ABSTRACTION Provider, Abstract 11/17/2024 External Device Data STL ABSTRACTION Provider, Abstract 11/17/2024 External Device Data STL ABSTRACTION Provider, Abstract 11/17/2024 External Device Data STL ABSTRACTION Provider, Abstract from Last 3 Months Immunizations Immunization Administration Dates Next Due (M-M-R II/PRIORIX)(12 MO UP) MEASLES, MUMPS AND RUBELLA VIRUS VACCINE, 0.5 ML IM/SUBCUT 03/10/2008,09/09/2003 (VARIVAX)(12 MOS UP)VARICELL A VIRUS VACCINE (PF) 0.5 ML, SUB CUT 12/09/2003 Dt Dtp Dtap Vaccine 03/10/2008, 4,03/11/2003,2002,2002 HIB, Unspecified Formulation 12/09/2003, 03/11/2003,2002,2002 Hepatitis B Vaccine 03/11/2003,2002,2002 IPV/OPV 03/10/2008, 3,2002,2002 Influenza Vaccine Split 3+ Yrs IM 03/17/2010 Family History * Patient is adopted Medical History Relation Name Comments Healthy Father Respiratory Disease Maternal Grandfather Breast Cancer Maternal Grandmother Respiratory Disease Maternal Grandmother Diabetes Mother Other Mother narcolepsy Respiratory Disease Mother Thyroid Disease Mother Colon Cancer Neg Hx Relation Name Status Comments Father Alive Maternal Grandfather Alive Maternal Grandmother Alive Mother Alive Paternal Grandfather Paternal Grandmother Social History Tobacco Use Types Packs/Day Years Used Date Smoking Tobacco: Former Smokeless Tobacco: Never Tobacco Cessation:Counseling Given: Not Answered Alcohol Use Standard Drinks/Week Comments Not Currently 0 (1 standard drink = 0.6 oz pur e alcohol) Comments No Sex and Gender Information Value Date Recorded Sex Assigned at Not on file Legal Sex Female 10:38 AM STONE SANDBLASTER Gender Identity Not on file Sexual Orientation Not on file Last Filed Vital Signs Vital Sign Reading Time Taken Comments Blood Pressure 124/88 07/17/2022 10:32 PM STONE SANDBLASTER Pulse 97 07/17/2022 11:00 PM STONE SANDBLASTER Temperature 36.5 C (97.7 F) 07/17/2022 10:32 PM STONE SANDBLASTER Respiratory Rate 20 07/17/2022 11:0 0 PM STONE SANDBLASTER Oxygen Saturation 98% 07/17/2022 10: 57 PM STONE SANDBLASTER Inhaled Oxygen Concentration - - Weight 120.4 kg (265 lb 6.4 oz) 023 10:32 PM STONE SANDBLASTER Height 170.2 cm (5' 7 ) 07/17/2022 10:3 2 PM STONE SANDBLASTER Body Mass Index 41.57 07/17/2022 10:32 PM STONE SANDBLASTER Plan of Treatment Health Maintenance Due Date Last Done Comments CHLAMYDIA SCREENING (ANNUAL) 11-24 YEARS 2013 DTAP/TDAP/TD VACCINES (6 - Tdap) 2013 03/10/2008, 12/09/2003, 03/11/2003, Additional history exists HPV VACCINES (1 - 3-dose series) 2017 CERVICAL CANCER SCREENING 08/26/2023 HPV/Cotest (21-29) 08/26/2023 PAP SMEAR 08/26/2023 INFLUENZA VACCINE (#1) 2025 03/17/2010 HEPATITIS B VACCINES Completed 03/11/2003, 2002, 2002 Insurance * Guarantor: LILLIE MORALES Account Type Relation to Patient Date of Phone Billing Address Personal/Family [address] [facility] [place] [address] RX INFOCROSS[place] Medicaid Advance Directives For more information, please contact: [phone] * Full Code (Latest Code Status on File) Date Activated Date Inactivated Comments 08/13/2021 2:36 PM 08/16/2021 10:49 PM * Full Code Date Activated Date Inactivated Comments 08/12/2021 3:41 PM 08/13/2021 1:04 PM Care Teams Surgical Aides Teacher Relationship Specialty Start Date End Date Rosy Larkin FNP [address] [place] [phone] PCP - General Nurse Practitioner Family 08/02/21
--- OUTSIDE RECORDS SUMMARY | 2024-12-17 00:37 | XMS_ITS | Encounter Summary ---
Author Organization [facility] Address [address] [place] [address] Care Team Providers Care Senior Power Plant Operator Name Role Phone Rosy Larkin CADY Primary Care Provider [phone] Encounter Details Date Type Department Care Team (Late st Contact Info) Description 12/15/2024 External Device Data ST[facility] ABSTRACTION Provider, Abstract NO ADDRESS ON FILE Social History Tobacco Use Types Packs/Day Years Used Date Smoking Tobacco: Former Smokeless Tobacco: Never Alcohol Use Standard Drinks/Week Comments Not Currently 0 (1 standard drink = 0.6 oz pur e alcohol) Comments No Sex and Gender Information Value Date Recorded Sex Assigned at Not on file Legal Sex Female 10:38 AM FORENSIC BALLISTICS EXPERT Gender Identity Not on file Sexual Orientation Not on file documented as of this encounter Plan of Treatment Not on file documented as of this encounter Visit Diagnoses Not on filedocumented in this encounter Care Teams Senior Power Plant Operator Relationship Specialty Start Date End Date Rosy Larkin CADY [address] [place] [address] PCP - General Nurse Practitioner Family 08/02/21 documented as of this encounter
[2024-12-17 01:30] VITALS: RESP 18
[2024-12-17] MEDS: morphine 4 mg/mL SDV 1 mL 8 MG IM (01:30)
[2024-12-17 02:13] VITALS: BP 155/84; PULSE 78; O2SAT 91
--- NOTE | 2024-12-17 03:03 | W.ED.DENTAL ---
HPI - Dental/Oral General: Chief complaint: Dental/Oral Stated complaint: Tooth Ache Time Seen by Provider: 12/17/24 00:57 History of Present Illness: Patient presents with severe upper tooth pain, rating it as 10/10 on the pain scale. The pain has been present for a long time, initially becoming bad about two years ago, leading the patient to stop eating on that side. Recently, the patient started eating on the affected side again due to developing patches on the other side. The patient was able to eat today. No prior antibiotics have been taken for this issue. The patient has not seen a dentist since their child was a , approximately three years ago. The patient reports that the pain is now severe and involves the whole head. On examination, the gums around the affected tooth appear dark red, and there is a fracture of the tooth behind a silver crown. Related Data Home Medications ?Medication ?Instructions ?Recorded ?Confirmed albuterol sulfate 90 mcg/actuation 1 puff inhalation Q4H PRN Wheezing 12/04/23 12/24/23 aerosol inhaler (Ventolin HFA) sertraline 100 mg tablet 100 mg PO DAILY 12/04/23 12/24/23 spironolactone 25 mg tablet 25 mg PO DAILY 12/04/23 12/24/23 Previous Rx's ?Medication ?Instructions ?Recorded clindamycin HCl 150 mg capsule 450 mg (3 x 150 mg) PO Q8H 14 days 12/17/24 (Cleocin HCl) #126 caps oxycodone-acetaminophen 5 mg-325 1 tab PO Q8H PRN pain #20 tabs 12/17/24 mg tablet (Percocet) Allergies Allergy/AdvReac Type Severity Reaction Status Date / Time No Known Allergies Allergy Verified 12/17/24 00:39 [facility] ED PFSH: Medical History COPD (chronic obstructive pulmonary disease) Positive urine drug screen Surgical History Hx of knee surgery PT REPORTS KNEE SURGERY 2017 Family History Unknown No problems noted. Mother Diabetes Clotting disorder Hypertension Grandmother Cancer Maternal lung cancer Hypertension Maternal Father No problems noted. Sister Trisomy 13 Denies family history of Chronic kidney disease (CKD) Bleeding disorder Stroke Social History Smoking and tobacco/nicotine status: never used tobacco/nicotine Second hand smoke exposure: Yes Alcohol intake: never Substance/Drug Use: current Adopted: No Highest education level completed: 10th Grade Current occupational exposures/hazards: No Female Reproductive History: Date of last menstrual period: 12/04/24 Para: 0 Spontaneous abortions: No Physical Exam Const: COMMON NORMALS: patient oriented x3 and alert HENMT: COMMON NORMALS: normocephalic and atraumatic HEAD & SCALP: normocephalic and atraumatic OTHER: Multiple caries throughout the mouth. Mild irritation of the gums surrounding tooth 17. Eye: COMMON NORMALS: Equal, round and reactive pupils present, EOMs intact bilaterally and no scleral icterus PUPIL: Yes Equal, round and reactive pupils present Resp: COMMON NORMALS: normal respiratory effort and No retractions Cardio: COMMON NORMALS: regular rate, regular rhythm and No murmurs present (Cardio) RATE: regular rate RHYTHM: regular rhythm GI: COMMON NORMALS: Normal to inspection, nondistended, normoactive bowel sounds present, Soft to palpation and non-tender PALPATION: Yes Soft to palpation Neuro: COMMON NORMALS: patient oriented x3 SENSORIUM/ORIENTATION: Yes alert Skin: COMMON NORMALS: no rashes or lesions noted GENERAL SKIN EXAM: no rashes or lesions noted Course Vital Signs: Vital signs: Vital Signs Temperature 97.6 F 12/17/24 00:31 Pulse Rate 78 12/17/24 02:13 Respiratory Rate 18 12/17/24 01:30 Blood Pressure 155/84 12/17/24 02:13 Pulse Oximetry 91 12/17/24 02:13 Oxygen Delivery Me thod Room Air 12/17/24 00:31 MDM - Dental/Oral Medical Decision Making In summary, patient appears to have dental pain. She has had this pain off and on for a long time but got acutely worse today. She has not had antibiotics for it. She agrees to be seen by dentist soon as possible. I will give her a course of clindamycin and a short course of pain medication to be taken alongside ibuprofen. She shows good understanding and agrees to the plan and feels much better at this time. No radiology studies performed this visit Discharge Plan Discharge Patient Disposition: Home Clinical Impression: Dental infection Condition: Stable Prescriptions: New clindamycin HCl [Cleocin HCl] 150 mg capsule 450 mg PO Q8H 14 Days Qty: 126 0RF oxycodone-acetaminophen [Percocet] 5-325 mg tablet 1 tab PO Q8H PRN (Reason: pain) Qty: 20 0RF No Action sertraline 100 mg tablet 100 mg PO DAILY spironolactone 25 mg tablet 25 mg PO DAILY Patient Comments: states out of medications albuterol sulfate [Ventolin HFA] 90 mcg/actuation HFA aerosol inhaler 1 puff INHALATION Q4H PRN (Reason: Wheezing) Discharge Orders: Discharge ED (Routine); Ordered 12/17/24 Ordered By: Kapil Thornton Referrals: Rosy Larkin FNP [Primary Care Provider, Nurse Practitioner] Discharge Diet: Advance as tolerated Discharge Activity: Increase activity as tolerated Patient Instructions: Toothache (ED), Opioid Safety, Pain Management, Patient Portal & Kellie Instructions Activity Restrictions/Additional Instructions: please see a dentist as soon as possible Print Language: French Coding Level of Care Code ED Demurrage Worker for Kate Lacy
== END 2024-12-17 02:15 | disposition home or self-care (01) ==
PROVIDERS: Emergency Provider Student in an Organized Health Care Education/Training Program; PCP Nurse Practitioner Family
DX: K04.7 Periapical abscess without sinus (principal); J44.9 Chronic obstructive pulmonary disease, unspecified
CPT/HCPCS: 96372; 99284; J1885; J2270; J9999

== ENCOUNTER 2024-12-19 23:42 | Emergency (ER) | payer BC, MEDICAID, SELFPAY ==
--- OUTSIDE RECORDS SUMMARY | 2024-12-19 23:47 | XMS_ITS | Clinical Summary ---
Author Organization [facility] Address [address] [place] [address] Care Team Providers Care Sports Complex Attendant Name Role Phone Trae, Rosy CADY Primary Care Provider [phone] Allergies No known active allergies Medications ipratropium-albu [...] on file Legal Sex Female 10:38 AM CRIMINOLOGY PROFESSOR Gender Identity Not on file Sexual Orientation Not on file Last Filed Vital Signs Vital Sign Reading Time Taken Comments Blood Pressure 124/88 07/17/2022 10:32 PM CRIMINOLOGY PROFESSOR Pulse 97 07/17/2022 11:00 PM CRIMINOLOGY PROFESSOR Temperature 36.5 C (97.7 F) 07/17/2022 10:32 PM CRIMINOLOGY PROFESSOR Respiratory Rate 20 07/17/2022 11:0 0 PM CRIMINOLOGY PROFESSOR Oxygen Saturation 98% 07/17/2022 10: 57 PM CRIMINOLOGY PROFESSOR Inhaled Oxygen Concentration - - Weight 120.4 kg (265 lb 6.4 oz) 023 10:32 PM CRIMINOLOGY PROFESSOR Height 170.2 cm (5' 7 ) 07/17/2022 10:3 2 PM CRIMINOLOGY PROFESSOR Body Mass Index 41.57 07/17/2022 10:32 PM CRIMINOLOGY PROFESSOR Plan of Treatment Health Maintenance Due Date [...] Patient Date of Phone Billing Address Personal/Family [address] [facility] [place] [address] RX INFOCROSS[place] Medicaid Advance Directives For more information, please contact: [phone] * Full Code (Latest Code Status on File) Date Activated Date Inactivated Comments 08/13/2021 2:36 PM 08/16/2021 10:49 PM * Full Code Date Activated Date Inactivated Comments 08/12/2021 3:41 PM 08/13/2021 1:04 PM Care Teams Sports Complex Attendant Relationship Specialty Start Date End Date Rosy Larkin FNP [address] [place] [phone] PCP - General Nurse Practitioner Family 08/02/21
--- OUTSIDE RECORDS SUMMARY | 2024-12-19 23:47 | XMS_ITS | Encounter Summary ---
Author Organization [facility] Address [address] [place] [address] Care Team Providers Care Desk Sergeant Name Role Phone Rosy Larkin CADY Primary Care Provider [phone] Encounter Details Date Type Department Care Team [...] on file Legal Sex Female 10:38 AM GIS SCIENTIST Gender Identity Not on file Sexual Orientation Not on file documented as of this encounter Plan of Treatment Not on file documented as of this encounter Visit Diagnoses Not on filedocumented in this encounter Care Teams Desk Sergeant Relationship Specialty Start Date End Date Rosy Larkin CADY [address] [place] [address] PCP - General Nurse Practitioner Family 08/02/21 documented as of this encounter
[2024-12-20 00:01] VITALS: BP 132/84; PULSE 79; RESP 17; TEMP 36.8; O2SAT 98; BMI 41.1
--- NOTE | 2024-12-20 01:06 | ED_ITS ---
HPI - Dental/Oral General: Chief complaint: Dental/Oral Stated complaint: left side dental pain Time Seen by Provider: 12/20/24 01:04 History of Present Illness: 24-year-old female patient presents [facility] with left-sided upper dental pain. Patient states she was started on antibiotics a few days ago but the pain is worse today. Patient states that she has a dentist appointment on Saturday a.m. and she just needs something for pain to get her through the night. Patient denies any trismus. Patient denies any difficulty swallowing. Patient denies any fever. Patient denies any other complaints Related Data Home Medications ?Medication ?Instructions ?Recorded ?Confirmed albuterol sulfate 90 mcg/actuation 1 puff inhalation Q 4H PRN Wheezing 12/04/23 12/24/23 aerosol inhaler (Ventolin HFA) sertraline 100 mg tablet 100 mg PO DAILY 12/04/2303/10 spironolactone 25 mg tablet 25 mg PO DAILY 12/04/23 Previous Rx's ?Medication ?Instructions ?Recorded clindamycin HCl 150 mg capsule 450 mg (3 x 150 mg) PO Q8H 14 days 12/17/24 (Cleocin HCl) #126 caps oxycodone-acetaminophen 5 mg-325 1 tab PO Q8H PRN pain #20 tabs 12/17/24 mg tablet (Percocet) Allergies Allergy/AdvReac Type Severity Reaction Status Date / Time Penicillins Allergy ALGY-Rash Verified 12/20/24 00:05 Review of Systems General: Reports: 10 or more systems reviewed and unremarkable except in HPI and below PFSH ED PFSH: Medical History COPD (chronic obstructive pulmonary disease) Positive urine drug screen Surgical History Hx of knee surgery PT REPORTS KNEE SURGERY 2017 Family History Unknown No problems noted. Mother Diabetes Clotting disorder Hypertension Grandmother Cancer Maternal lung cancer Hypertension Maternal Father No problems noted. Sister Trisomy 13 Denies family history of Chronic kidney disease (CKD) Bleeding disorder Stroke Social History Smoking and tobacco/nicotine status: never used tobacco/nicotine Second hand smoke exposure: Yes Alcohol intake: never Substance/Drug Use: current Adopted: No Highest education level completed: 10th Grade Current occupational exposures/hazards: No Female Reproductive History: Para: 0 Spontaneous abortions: No Physical Exam Const: COMMON NORMALS: no acute distress, patient oriented x3 and alert HENMT: COMMON NORMALS: normocephalic and atraumatic HEAD & SCALP: normocephalic and atraumatic OTHER: Multiple caries throughout the mouth. Mild irritation of the gums surrounding tooth 17. Eye: COMMON NORMALS: Equal, round and reactive pupils present, EOMs intact bilaterally and no scleral icterus PUPIL: Yes Equal, round and reactive pu pils present Resp: COMMON NORMALS: normal respiratory effort and No retractions Cardio: COMMON NORMALS: regular rate, regular rhythm and No murmurs present (Cardio) RATE: regular rate RHYTHM: regular rhythm GI: COMMON NORMALS: Normal to inspection, nondistended, normoactive bowel sounds present, Soft to palpation and non-tender PALPATION: Yes Soft to palp ation Neuro: COMMON NORMALS: patient oriented x3 SENSORIUM/ORIENTATION: Yes alert Skin: COMMON NORMALS: no rashes or lesions noted GENERAL SKIN EXAM: no rashes or lesions noted Course Vital Signs: Vital signs: Vital Signs Temperature 98.2 F 12/20/24 00:01 Pulse Rate 79 12/20/24 00:01 Respiratory Rate 17 12/20/24 00:01 Blood Pressure 132/84 12/20/24 00:01 Pulse Oximetry 98 12/20/24 00:01 Oxygen Delivery Me thod Room Air 12/20/24 00:01 MDM - Dental/Oral Medical Decision Making Patient is well-appearing nontoxic and in no acute distress. 24-year-old female patient presents emergency department with left-sided upper dental pain. Patient states she was started on antibiotics a few days ago but the pain is worse today. Patient states that she has a dentist appointment on Saturday a.m. and she just needs something for pain to get her through the night. Patient denies any trismus. Patient denies any difficulty swallowing. Patient denies any fever. Patient denies any other complaints. [place] 5 was given in the emergency department patient is to follow-up with her dentist in a.m. Patient now has no obvious drainable abscess noted. Patient is medically cleared and appropriate for discharge No radiology studies performed this visit Discharge Plan Discharge Condition: Stable Prescriptions: No Action sertraline 100 mg tablet 100 mg PO DAILY spironolactone 25 mg tablet 25 mg PO DAILY Patient Comments: states out of medications albuterol sulfate [Ventolin HFA] 90 mcg/actuation HFA aerosol inhaler 1 puff INHALATION Q4H PRN (Reason: Wheezing) clindamycin HCl [Cleocin HCl] 150 mg capsule 450 mg PO Q8H 14 Days Qty: 126 0RF oxycodone-acetaminophen [Percocet] 5-325 mg tablet 1 tab PO Q8H PRN (Reason: pain) Qty: 20 0RF Referrals: Larkin,PAL GallegosP [Primary Care Provider, Nurse Practitioner] Print Language: Kiswahili Coding Level of Care Code ED Surgical Rn for Kate Lacy
[2024-12-20] MEDS: HYDROcodone-acetaminophen 5-325 mg Tablet 1 TAB PO (01:13)
[2024-12-20 01:57] VITALS: BP 136/80; PULSE 69; RESP 17; O2SAT 97
== END 2024-12-20 01:39 | disposition home or self-care (01) ==
PROVIDERS: Emergency Provider Registered Nurse; PCP Nurse Practitioner Family
DX: K08.89 Other specified disorders of teeth and supporting structures (principal); J44.9 Chronic obstructive pulmonary disease, unspecified
CPT/HCPCS: 99283; J9999

== ENCOUNTER 2025-01-23 13:23 | Emergency (ER) | payer BC, MEDICAID, SELFPAY ==
--- OUTSIDE RECORDS SUMMARY | 2025-01-23 13:29 | XMS_ITS | Encounter Summary ---
Author Organization [facility] Address [address] [place] [address] Care Team Providers Care Licensed Optician Name Role Phone Rosy Larkin CADY Primary Care Provider [phone] Encounter Details Date Type Department Care Team (Late st Contact Info) Description 01/20/2025 External Device Data STL ABSTRACTION Provider, Abstract NO ADDRESS ON FILE Social History Tobacco Use Types Packs/Day Years Used Date Smoking Tobacco: Former Smokeless Tobacco: Never Alcohol Use Standard Drinks/Week Comments Not Currently 0 (1 standard drink = 0.6 oz pur e alcohol) Comments No Sex and Gender Information Value Date Recorded Sex Assigned at Not on file Legal Sex Female 10:38 AM PERSONNEL CLERKS SUPERVISOR Gender Identity Not on file Sexual Orientation Not on file documented as of this encounter Plan of Treatment Not on file documented as of this encounter Visit Diagnoses Not on filedocumented in this encounter Care Teams Licensed Optician Relationship Specialty Start Date End Date Rosy Larkin CADY [address] [place] [address] PCP - General Nurse Practitioner Family 08/02/21 documented as of this encounter
--- OUTSIDE RECORDS SUMMARY | 2025-01-23 13:29 | XMS_ITS | Clinical Summary ---
Author Organization [facility] Address [address] [place] [address] Care Team Providers Care Configuration Management Manager Name Role Phone Trae, Rosy CADY Primary Care Provider [phone] Allergies No known active allergies Medications ipratropium-albu [...] Encounters Date Type Department Care Team Description 01/20/2025 External Device Data STL ABSTRACTION Provider, Abstract 12/15/2024 External Device Data STL ABSTRACTION Provider, [...] on file Legal Sex Female 10:38 AM ANGLE FURNACEMAN Gender Identity Not on file Sexual Orientation Not on file Last Filed Vital Signs Vital Sign Reading Time Taken Comments Blood Pressure 124/88 07/17/2022 10:32 PM ANGLE FURNACEMAN Pulse 97 07/17/2022 11:00 PM ANGLE FURNACEMAN Temperature 36.5 C (97.7 F) 07/17/2022 10:32 PM ANGLE FURNACEMAN Respiratory Rate 20 07/17/2022 11:0 0 PM ANGLE FURNACEMAN Oxygen Saturation 98% 07/17/2022 10: 57 PM ANGLE FURNACEMAN Inhaled Oxygen Concentration - - Weight 120.4 kg (265 lb 6.4 oz) 023 10:32 PM ANGLE FURNACEMAN Height 170.2 cm (5' 7 ) 07/17/2022 10:3 2 PM ANGLE FURNACEMAN Body Mass Index 41.57 07/17/2022 10:32 PM ANGLE FURNACEMAN Plan of Treatment Health Maintenance Due Date [...] Patient Date of Phone Billing Address Personal/Family [address] [place] [address] RX INFOCROSSING Medicaid Advance Directives For more information, please contact: [phone] * Full Code (Latest Code Status on File) Date Activated Date Inactivated Comments 08/13/2021 2:36 PM 08/16/2021 10:49 PM * Full Code Date Activated Date Inactivated Comments 08/12/2021 3:41 PM 08/13/2021 1:04 PM Care Teams Configuration Management Manager Relationship Specialty Start Date End Date Rosy Larkin FNP [address] [place] [phone] PCP - General Nurse Practitioner Family 08/02/21
[2025-01-23 13:33] VITALS: BP 112/71; PULSE 97; RESP 22; TEMP 36.7; O2SAT 99; BMI 37.5
--- NOTE | 2025-01-23 14:31 | W.ED.ASTHMA ---
HPI - Asthma General: Chief Complaint: Asthma Stated Complaint: SOB Time Seen by Provider: 01/23/25 13:32 History of Present Illness: HPI: Patient states shortness of breath progressed over the last few days. He is visiting the area and ran out of her albuterol inhaler. No fevers, sweats, chills, cough. No GI symptoms. Patient requested breathing treatment states that her condition is improved from prior to coming here but still is having some difficulty breathing. Not on hormonal control. Has had previous blood clots. REVIEW OF SYSTEMS: 10 systems reviewed and otherwise unremarkable except for those noted in HPI. PHYSCIAL EXAM: Triage vital signs reviewed Gen: A&O NAD HEENT: NCAT, EOMI, not icteric. External ears normal. No rhinorrhea. Moist mucous membranes. Neck: Supple, full range of motion, no observable masses, No meningeal sign. Lungs: No Respiratory distress. CV: RRR, no edema. Abdomen: Soft, nondistended, No rebound tenderness. MSK: No joint swelling, no redness. Skin: No rashes, petechiae, lesions. Normal color per patient. Neuro: Normal Gait, Grossly intact. Psych: Appropriate for situation. PROCEDURES: N/A Related Data Home Medications ?Medication ?Instructions ?Recorded ?Confirmed albuterol sulfate 90 mcg/actuation 1 puff inhalation Q4H PRN Wheezing 12/04/23 12/24/23 aerosol inhaler (Ventolin HFA) sertraline 100 mg tablet 100 mg PO DAILY 12/04/23 12/24/23 spironolactone 25 mg tablet 25 mg PO DAILY 12/04/23 12/24/23 Previous Rx's ?Medication ?Instructions ?Recorded oxycodone-acetaminophen 5 mg-325 1 tab PO Q8H PRN pain #20 tabs 12/17/24 mg tablet (Percocet) prednisone 10 mg tablet 40 mg (4 x 10 mg) PO DAILY 5 days 01/23/25 #20 tabs Allergies Allergy/AdvReac Type Severity Reaction Status Date / Time Penicillins Allergy ALGY-Rash Verified 12/20/24 00:05 [facility] ED [facility]: Medical History (Updated 01/23/25 @ 14:35 by Puneet Blum MD) COPD (chronic obstructive pulmonary disease) Positive urine drug screen Surgical History Hx of knee surgery PT REPORTS KNEE SURGERY 2017 Family History Unknown No problems noted. Mother Diabetes Clotting disorder Hypertension Grandmother Cancer Maternal lung cancer Hypertension Maternal Father No problems noted. Sister Trisomy 13 Denies family history of Chronic kidney disease (CKD) Bleeding disorder Stroke Social History Smoking and tobacco/nicotine status: never used tobacco/nicotine Second hand smoke exposure: Yes Alcohol intake: never Substance/Drug Use: current Adopted: No Highest education level completed: 10th Grade Current occupational exposures/hazards: No Female Reproductive History: Para: 0 Spontaneous abortions: No Course Vital Signs: Vital signs: Vital Signs Temperature 98.0 F 01/23/25 13:33 Pulse Rate 68 01/23/25 14:57 Respiratory Rate 22 H 01/23/25 14:57 Blood Pressure 112/71 01/23/25 13:33 Pulse Oximetry 98 01/23/25 14:57 Oxygen Delivery Me thod Room Air 01/23/25 14:57 MDM - Asthma Medical Decision Making MEDICAL DECISION MAKING: Differential diagnoses considered but not limited to: Asthma exacerbation, PE, pneumonia, pneumothorax. Vitals nonactionable. Given history, examination, and pretest risk factors, feel most consistent with asthma exacerbation. Provided DuoNeb, oral steroids. Prescription for oral steroids. Dimer negative. Chest x-ray negative. DISPO: JM Blum MD Staff physician, [facility] [place] Emergency Department [phone] Lab Data 01/23/25 14:43 01/23/25 14:43 Radiology Impressions Chest X-Ray 01/23/25 14:32 IMPRESSION: No acute findings. Laboratory Results WBC 6.35 10^3/uL (3.29-11.43) 01/23/25 14:43 RBC 4.63 10^6/uL (3.85-5.65) 01/23/25 14:43 Hgb 10.80 g/dL (11.27-16.99) L 01/23/25 14:43 Hct 36.0 % (36-47) 01/23/25 14:43 MCV 77.8 fl (85-98) L 01/23/25 14:43 MCH 23.3 pg (27-33) L 01/23/25 14:43 MCHC 30.0 g/dL (30-55) 01/23/25 14:43 RDW 17.0 % (12.1-15.1) H 01/23/25 14:43 Plt Count 292 10^3/cmm (157-399) 01/23/25 14:43 MPV 8.9 fL (7.4-10.4) 01/23/25 14:43 Neut % (Auto) 65.4 % 01/23/25 14:43 Lymph % (Auto) 21.9 % 01/23/25 14:43 Lamb % (Auto) 9.1 % 01/23/25 14:43 Eos % (Auto) 2.8 % 01/23/25 14:43 Baso % (Auto) 0.6 % 01/23/25 14:43 Neut # (Auto) 4.15 10^3/uL (1.8-7.7) 01/23/25 14:43 Lymph # (Auto) 1.4 10^3/uL (0.8-4.8) 01/23/25 14:43 Lamb # (Auto) 0.6 10^3/uL (0.2-0.9) 01/23/25 14:43 Eos # (Auto) 0.2 10^3/uL (0.0-0.8) 01/23/25 14:43 Baso # (Auto) 0.0 10^3/uL (0.0-0.1) 01/23/25 14:43 Nucleated RBC % (auto) 0 % 01/23/25 14:43 Nucleated RBCs # 0.0 /100WBC 01/23/25 14:43 D-Dimer <= 0.27 ug/mLFEU (0-0.59) 01/23/25 14:43 Sodium 137 mmol/L (136-145) 01/23/25 14:43 Potassium 4.4 mmol/L (3.5-5.1) 01/23/25 14:43 Chloride 105 mmol/L (98-107) 01/23/25 14:43 Carbon Dioxide 22 mmol/L (22-29) 01/23/25 14:43 Anion Gap 14.4 (5-19) 01/23/25 14:43 BUN 10 mg/dL (6-20) 01/23/25 14:43 Creatinine 0.7 mg/dL (0.5-0.9) 01/23/25 14:43 GFR Calculation 104.6 mL/min (90-130) 01/23/25 14:43 Glucose 86 mg/dL (65-115) 01/23/25 14:43 Calculated Osmolality 282 mOsm/kg (285-295) L 01/23/25 14:43 Calcium 8.6 mg/dL (8.5-10.5) 01/23/25 14:43 HCG, Qual Negative (Negative) 01/23/25 14:43 All radiology interpretation(s) finalized by discharge Discharge Plan Discharge Patient Disposition: Home Clinical Impression: Asthma with acute exacerbation Condition: Stable Prescriptions: New prednisone 10 mg tablet 40 mg PO DAILY 5 Days Qty: 20 0RF No Action sertraline 100 mg tablet 100 mg PO DAILY spironolactone 25 mg tablet 25 mg PO DAILY Patient Comments: states out of medications albuterol sulfate [Ventolin HFA] 90 mcg/actuation HFA aerosol inhaler 1 puff INHALATION Q4H PRN (Reason: Wheezing) oxycodone-acetaminophen [Percocet] 5-325 mg tablet 1 tab PO Q8H PRN (Reason: pain) Qty: 20 0RF Discharge Orders: Discharge ED (Routine); Ordered 01/23/25 Ordered By: Puneet Blum Referrals: Larkin,Rosy, FRYER OPERATOR [Primary Care Provider, Nurse Practitioner] Discharge Diet: Usual diet Discharge Activity: Resume usual activity Patient Instructions: Asthma (DC), Opioid Safety, Pain Management, Patient Portal & Kellie Instructions Activity Restrictions/Additional Instructions: It has been a pleasure caring for you in the emergency department. Please ensure that you follow-up with your primary care physician for review of all data obtained during this encounter including any incidental findings and laboratory values. Keep in mind that if your condition worsens in any way, I strongly recommend that you return to the emergency department for repeat evaluation immediately. Print Language: [place] Coding Level of Care Code ED Flyer Builder for Kate Lacy
--- NOTE | 2025-01-23 14:32 | XRR_ITS ---
PROCEDURE INFORMATION: Exam: XR Chest Exam date and time: 01/23/2025 2:42 PM Age: 24 years old Clinical indication: Shortness of breath; Additional info: SOB TECHNIQUE: Imaging protocol: Radiologic exam of the chest. Views: 1 view. COMPARISON: CR XR chest 1V portable [id number] 12/23/2023 8:54 PM FINDINGS: Lungs: Unremarkable. No consolidation. Pleural spaces: No pneumothorax. Heart/Mediastinum: Unremarkable. No cardiomegaly. Bones/joints: Unremarkable. XR/XR chest 1V [id number] IMPRESSION: No acute findings.
[2025-01-23 14:48] LABS: Hematocrit 36.0 % (36-47); Hemoglobin 10.80 g/dL (11.27-16.99); Mean Corpuscular HGB Conc 30.0 g/dL (30-55); Mean Corpuscular Hemoglobin 23.3 pg (27-33); Mean Corpuscular Volume 77.8 fl (85-98); Nucleated Red Blood Cells % 0 %; Platelet Count 292 10^3/cmm (157-399); Red Blood Count 4.63 10^6/uL (3.85-5.65); White Blood Count 6.35 10^3/uL (3.29-11.43)
[2025-01-23 14:57] VITALS: PULSE 68; RESP 22; O2SAT 98
[2025-01-23 15:05] LABS: HCG, Serum Qual Negative (Negative)
[2025-01-23 15:06] LABS: Anion Gap 14.4 (5-19); Blood Urea Nitrogen 10 mg/dL (6-20); Calcium 8.6 mg/dL (8.5-10.5); Carbon Dioxide 22 mmol/L (22-29); Chloride 105 mmol/L (98-107); Creatinine Clr Calc Pharmacy 160.2109; Glucose 86 mg/dL (65-115); Osmolality Calculated 282 mOsm/kg (285-295); Potassium 4.4 mmol/L (3.5-5.1); Sodium 137 mmol/L (136-145)
== END 2025-01-23 16:17 | disposition home or self-care (01) ==
PROVIDERS: Emergency Provider General Practice; PCP Nurse Practitioner Family
DX: J45.901 Unspecified asthma with (acute) exacerbation (principal); J44.9 Chronic obstructive pulmonary disease, unspecified
CPT/HCPCS: 36415; 71045; 80048; 84703; 85025; 85378; 94640; 99284; J7512; J9999